=== PATIENT | male | born 2000 | race Caucasian/White ===

== ENCOUNTER 2023-07-07 11:48 | Emergency (ER) | payer OTHER, SELFPAY ==
[2023-07-07 11:53] VITALS: BP 131/82; PULSE 91; RESP 16; O2SAT 99; BMI 20.6
--- NOTE | 2023-07-07 11:57 | XR_ITS ---
WS: [id number] Left hand, 3 views, 07/07/2023 Clinical Data: hand injury Comparison: None. Findings: No fractures or dislocations are seen. The soft tissues are unremarkable. The joint spaces are normal There is minimal flexion of the left third finger PIP joint and there is a dressing surrounding the d istal left third finger. Impression: Negative for bone injury of the left hand.
[2023-07-07] MEDS: lidocaine 1% INJ 10 mL (per mL) 5 ML INTRADERMA (13:00)
--- NOTE | 2023-07-07 13:02 | ED_ITS ---
HPI - Wound/Laceration General: Chief Complaint: Wound/Laceration Stated Complaint: joe injury sent by Time Seen by Provider: 07/07/23 12:08 Source: patient Mode of arrival: ambulatory Limitations: no limitations History of Present Illness: Patient presents to the emergency department today for evaluation treatment of injury sustained to the distal left third finger while at work today. Patient states that a belt on a piece of equipment he was using had broken. He and another employee were trying to replace the belt and both had lifted and held a metal gear to replace the belt. Patient states that the other employee said he was going to let go but, because of all the noise in the shop, the patient did not hear him. When the other employee let go of the gear, the gear fell down and impacted his left finger which was underneath the metal gear. Patient states he started bleeding immediately and applied pressure using his shirt. He did go to the office regarding his injury and was directed here. He reports his tetanus is up-to-date 3 years ago. Review of Systems General: Reports: 10 or more systems reviewed and unremarkable except in HPI and below Physical Exam Const: COMMON NORMALS: no acute distress, patient oriented x3 and alert HENMT: COMMON NORMALS: normocephalic, atraumatic and hearing grossly normal bilaterally HEAD & SCALP: normocephalic and atraumatic Eye: COMMON NORMALS: Equal, round and reactive pupils present, EOMs intact bilaterally and conjunctivae normal CONJUNCTIVA: Yes conjunctivae normal PUPIL: Yes Equal, round and reactive pupils present Neck/C-Spine: COMMON NORMALS: full ROM and no JVD Lymph: LYMPHATIC: no lymphadenopathy noted Resp: COMMON NORMALS: normal respiratory effort, No retractions and No use of accessory muscles Cardio: COMMON NORMALS: no JVD and regular rate RATE: regular rate Extremity: NARRATIVE EXTREMITY EXAM: Patient has ability to flex the DIP joint of the left third finger but cannot extend it. Patient is neurovascularly intact to the distal end of the left third finger. Cap refill brisk and less than 2 seconds. Nail matrix and nailbed unaffected. Patient has a semicircular laceration over the posterior DIP joint without active bleeding at this time. Neuro: COMMON NORMALS: patient oriented x3 SENSORIUM/ORIENTATION: Yes alert Psych: COMMON NORMALS: mental status grossly normal, Normal thought process present, cooperative and normal affect THOUGHT PROCESS: Normal thought process present Skin: COMMON NORMALS: no rashes or lesions noted and turgor normal GENERAL SKIN EXAM: no rashes or lesions noted and turgor normal Procedures Laceration Laceration 1: Site: hand Side (If applicable): left (Posterior DIP joint of the third finger) Size (cm): 1.25 Description: flap Depth: involves tendon Local Anesthetic: lidocaine 1% Amount of anesthesia used (mL): 3 Pre-repair: wound explored and irrigated extensively (Saline and Betadine flushed using syringe) Skin layer closed with: nylon Size (cm): 4-0 Number of sutures: 5 Technique: simple, interrupted Course Vital Signs: Vital signs: Vital Signs Pulse Rate 91 07/07/23 11:53 Respiratory Rate 16 07/07/23 11:53 Blood Pressure 131/82 07/07/23 11:53 Pulse Oximetry 99 07/07/23 11:53 Oxygen Delivery Me thod Room Air 07/07/23 11:53 MDM - Wound/Laceration Medical Decision Making X-ray showed no signs of underlying bony abnormality but, did note flexion at rest of the DIP joint of the third finger. On examination, patient is not able to extend from the DIP joint though flexion is possible. No signs of injury to the nail. Patient's wound did show noted wound edge separation and patient received ring block for comfort to allow for vigorous irrigation using syringe flush of saline and Betadine to clean the wound. With cleaning, the flap was able to be lifted and it does appear the patient's extensor tendon has been lacerated. Wound was anchored with 4-0 nylon sutures performed by Kevin (PA student) and a call to orthopedic specialty was initiated. Dr Stone (land reclamation specialist) requested eval by Dr Hart or by hand ortho in [place]. Contacted Kameron Hart PAC who indicated follow up in their clinic, requested IM ancef in ER and d/c on oral abx. Michael was also given short course of [place] by Dr Mike. Discussed with patient and his mother the request for follow-up through orthopedics as well as continuing oral antibiotics. They were also given information regarding wound care and bandaging instructions. Both patient and mother verbalized understanding and agreement to treatment plan. Differential Diagnosis Likely laceration (Skin, tendon, nail avulsion, nail matrix injury); Unlikely ab scess, abrasion or avulsion of skin Discharge Plan Discharge Patient Disposition: Home Clinical Impression: Laceration of finger, left, with tendon Condition: Stable Prescriptions: New doxycycline hyclate 100 mg capsule 100 mg PO BID 10 Days Qty: 20 0RF Discharge Orders: Discharge ED (Routine); Ordered 07/07/23 Ordered By: Sofy Gustafson Discharge Diet: Usual diet Discharge Activity: Limit activity as instructed Patient Instructions: Finger Laceration (ED), Tendon Laceration (ED) Activity Restrictions/Additional Instructions: X-ray indicated no bony fracture however, examination while wound was being irrigated is concerning for laceration of your extensor tendon. I did reach out to the retail seasonal specialist here who wishes to see you for follow-up. Until then, we want you to take your oral antibiotics as prescribed. Wash your wound twice a day with warm water and a mild soap, keep it covered with clean bandaging, and wear your finger guard for extra protection. Coding Level of Care Code ED Nuclear Medical Technologist for Corky Ruiz
[2023-07-07] MEDS: ceFAZolin 1,000 MG in water for injection-sterile 2.5 ML 2.5 MG IM (14:21)
--- NOTE | 2023-07-08 11:57 | DCPLANNER ---
Addendum entered by Zenia Aldrich 07/22/23 10:49: Patient did attend this appointment with ortho Addendum entered by Zenia Aldrich 07/11/23 14:03: Patient has a follow up appointment scheduled for Wednesday, July 12, 2023 at 1:[address] Hart at ortho. Original Note: icu manager had message to schedule a follow up appointment for patient with ortho. icu manager sent patients information to the front office staff at ortho. Patients information will be printed and reviewed. Clinic will call patient with appointment information.
== END 2023-07-07 14:30 | disposition home or self-care (01) ==
PROVIDERS: Emergency Provider Physician Assistant
DX: S61.213A Laceration without foreign body of left middle finger without damage to nail, initial encounter (principal); S56.424A Laceration of extensor muscle, fascia and tendon of left middle finger at forearm level, initial encounter; W23.0XXA Caught, crushed, jammed, or pinched between moving objects, initial encounter
CPT/HCPCS: 12001; 73130; 96372; 99283; J0690

== ENCOUNTER 2023-07-13 08:27 | Day surgery (SDC) | payer OTHER, SELFPAY ==
[2023-07-12 16:14] VITALS: BMI 21.2
[2023-07-13] VITALS (8 sets, daily range): BP systolic 122–147; BP diastolic 77–91; PULSE 62–99; RESP 12–19; TEMP 36.4–36.6; O2SAT 94–99; BMI 21.2
[2023-07-13] MEDS: acetaminophen 1,000 MG/100 ML PIGGYBACK 400 MG IV (09:11)
[2023-07-13] MEDS: ketorolac 30 mg/mL INJ (09:21)
[2023-07-13] MEDS: ketorolac 30 mg/mL INJ IVP (09:22)
[2023-07-13] MEDS: sodium chloride 0.9% 1,000 ML 30 ML IV (09:24)
--- NOTE | 2023-07-13 09:56 | P.ANESASSM_ITS ---
Pre-Anesthetic Assessment Height/Weight: Height 1.65 m Weight 58.06 kg Temp Pulse Resp BP Pulse Ox O2 Del Method 97.6 F 62 18 137/88 94 Room Air 07/13/23 08:58 07/13/23 08:58 07/13/23 08:58 07/13/23 08:58 07/13/23 08:58 07/13/23 08:59 Preop Diagnosis: left middle finger laceration extensor tendon injury Operation Date: 07/13/23 10:25 Proposed Procedures p LEFT MIDDLE FINGER LACERATION EXPLORATION. IRRIGATION AND DEBRIDEMENT. WITH EXTENSOR TENDON REPAIR AND DISTAL INTERPHALANGEAL JOINT PINNING. 18283,S61 .219A(Left) - Mckay Mahaska, DO s Debridement Upper Extremity(Left) - Mckay Hailey, DO s Tendon Repair Finger Extensor Tendon Repair Finger(Left) - Mckay Mahaska, DO Familial anesthetic complications: none Was Beta Ashwini taken within 24 hours: N/A Was Clonidine taken within 24 hours: N/A Last intake: Intake Last Liquid Date 07/12/23 Last Liquid Time 21:00 Last Solid Date 07/12/23 Last Solid Time 21:00 Social Alcohol and Tobacco (chews) Exam alert, oriented x 3 and regular rate & rhythm Airway Submandibular: within normal limits Cervical ROM: within normal limits Mallampati: Class II Dentition: chipped Anesthetic Plan ASA status: 2 Anesthesia: Choice Medications/Allergies Home Medications Medication Instructions Recorded Confirmed Last Taken Type doxycycline hyclate 100 mg capsule 100 mg PO BID 10 days #20 caps 07/07/23 07/13/23 07/13/23 Rx Allergies Allergy/AdvReac Type Severity Reaction Status Date / Time Sulfa (Sulfonamide Allergy ALGY-Hives Verified 07/12/23 16:13 Antibiotics) Current Medications Generic Name Dose Route Start Last Admin Trade Name Freq PRN Reason Stop Dose Admin Sodium Chloride 1,000 mls @ 30 mls/hr 07/13/23 09:00 07/13/23 09:24 Sodium Chloride 0.9% IV 07/14/23 08:59 30 mls/hr .Q24H LAY Administration Data Anesthesia Cardiac Studies: No Data to Display
--- NOTE | 2023-07-13 10:09 | W.PM.OPSUD ---
Surgery/Procedure H&P Update DATE OF PROCEDURE: July 13, 2023 DATE H&P PERFORMED: 07/12/23 CHANGES TO PREVIOUS DOCUMENTATION: None. No change in HPI visit from 07/12/2023. Patient has left middle finger extensor tendon laceration at zone 1. Through shared decision-making he understands risk benefits complication alternatives with surgery and elects proceed with surgical intervention. All questions answered at this time. Patient elects proceed with surgery today. PREOP DIAGNOSIS: left middle finger laceration extensor tendon injury PRIMARY INDICATION FOR PROCEDURE: left Middle finger laceration extensor tendon injury PLANNED PROCEDURE: Operation Date: 07/13/23 10:25 Proposed Procedures p LEFT MIDDLE FINGER LACERATION EXPLORATION. IRRIGATION AND DEBRIDEMENT. WITH EXTENSOR TENDON REPAIR AND DISTAL INTERPHALANGEAL JOINT PINNING. 34262,S61.219A(Left) - DO westley Motley Debridement Upper Extremity(Left) - DO westley Motley Tendon Repair Finger Extensor Tendon Repair Finger(Left) - Mckay Hart DO
[2023-07-13] MEDS: ceFAZolin 2,000 MG in sodium chloride 0.9% (plus) 50 ML 100 MG IV (10:33)
[2023-07-13] MEDS: ROPivacaine 0.5% SDV 30 mL 150 MG INJECTION (11:04)
[2023-07-13] MEDS: lidocaine 2% INJ 20 mL INJECTION (11:04)
--- NOTE | 2023-07-13 11:14 | SUR.OPER ---
Family Notified Of Patient's Status Via Phone.
--- NOTE | 2023-07-13 12:35 | PM.OP2 ---
Brief Operative Note Date of procedure: 07/13/23 Pre-op diagnosis: Left middle finger laceration extensor tendon injury Post-op diagnosis: same Procedure Done: Left middle finger laceration exploration. wound size [id number] Irrigation and debridement of (skin, fat, tendon and bone.) Extensor tendon repair and distal interphalangeal joint pinning. Surgeon: Mckay Hart Estimated blood loss (mL): 5 Complications: none Post-op Plan: Orthopedic discharge instructions: Keep splint and dressing on, dry and intact. Leave Dressing on and in place until follow up with Hand therapist in the about 3 days. Follow up with Hand OT Specialist for therapy and fitting of new splint. No baths or soaks No weightbearing on the extremity until cleared. Limited range of motion in finger Ice and elevate as needed for pain and swelling Finish taking your previously prescribed antibiotic. Take pain medication as prescribed Take antinausea medication as needed Follow-up with Dr. Hart in the office in 2 weeks Contact the office for any questions or concerns Condition: stable Disposition: PACU Coding Level of Care Code Acute Code for Chg Joseph
[2023-07-13] MEDS: meperidine 50 mg/mL INJ 12.5 MG IVP (12:39)
--- NOTE | 2023-07-13 12:40 | P.PCN_ITS ---
PACU note Narrative: Patient is a 22-year-old male who just underwent a left middle finger laceration extensor tendon repair, irrigation and debridement of wound and distal interphalangeal joint pinning. patient transferred to PACU in stable condition. Patient is somnolent but is arousable. pain is well controlled. Dressing and splint on hand is dry and in place. Patient's fingers are warm and well- perfused. Limited range of motion exam in fingers due to pinning and splint placement. normal cap refill under 2 seconds. Patient has normal elbow range of motion. Unable to assess sensation due to residual localized anesthetic. Exam: somnolent, arousable Disposition: discharged
--- NOTE | 2023-07-13 13:32 | P.OP_ITS ---
Operative Report Date of procedure: July 13, 2023 Pre-op diagnosis: Preop Diagnosis left middle finger laceration extensor tendon injury Post-op diagnosis: Same with traumatic arthrotomy left middle finger DIP joint Procedure done: Left middle finger laceration exploration Left middle finger irrigation debridement (wound size 2cmx0.1tre1ew? Irrigation and debridement of (skin, fat, tendon and bone.)) Left middle finger zone 1 extensor tendon repair Left middle finger distal interphalangeal joint percutaneous pinning Implants: 0.045 K wire x1 Arthrex 2.5 mm Cece swivel lock Surgeon: Mckay Hart DO/orthopedic forest patrolman: Kameron Hart?JUAN LUIS gerard was necessary for execution of his case for assistance with finger positioning as well as holding reduction for percutaneous pinning as well as assistance with retraction and protection of neurovascular structures and assistance in wound closure Anesthesia: MAC Estimated blood loss (mL): 1 Finger turnicot was used 73 minutes IV fluids: 700 mL Complications: None Findings: See operative report narrative Condition: stable Disposition: same day Brief History: Patient presents to the office after sustaining a traumatic laceration working at the [facility] [employer] through the left middle finger and has no active extension of his DIP joint with findings consistent with laceration left middle finger in zone 1 extensor tendon injury. We talked about treatment options given his young age would recommend surgical exploration with irrigation and debridement extensor tendon repair and pinning of the distal interphalangeal joint. We talked about the risk benefits complication alternatives with surgery through shared decisio n-making patient elects proceed with surgical intervention all questions answered at this time. Consent was obtained. Procedure: Patient seen evaluated in the preoperative holding area. Consent was reviewed and signed with patient. Correct extremity was then marked. Patient seen evaluated by anesthesia once cleared for surgery was brought back to the operative suite kept on the [facility] and an armboard was applied to the left upper extremity. He underwent anesthesia per the anesthesia department once appropriately anesthetized the left upper extremity was then prepped and draped in sterile orthopedic fashion. Final timeout performed. Patient received appropriate preoperative antibiotics. Finger turnicot was applied to the left middle finger I then utilized suture scissors to remove patient's previous laceration stitch repair for exploration. I made small extensions of the laceration which was in more of a U-shaped fashion over the DIP joint of the left middle finger. The extension allow me for mobilization. I then performed an extensive irrigation debridement of the wound bed which consisted of skin and subcutaneous tissue tendon and bone as there was a small dorsal piece of bone that was avulsed with no periosteal attachments and this was subsequently removed there is no complete fracture noted on the middle phalanx. The total wound size was 2 cm x 0.5 cm x 1 cm. I then thoroughly irrigated the wound bed and then underwent exploration evaluation of the extensor tendon injury. Extensor tendon injury was noted and was completely avulsed off of the distal attachment at the distal phalanx showing complete avulsion/laceration with no significant stump of tissue left particularly on the ulnar 90% of the tendon. There was a small attenuated terminal extensor with dorsal capsule on the radial half roughly 10% was left. I tried to reapproximate with just an end-to-end repair but given the minimal tissue distally the repair continued to tear through. At this point in time I elected to proceed with pinning of the distal interphalangeal joint to hold the finger and full extension to gas turbine powerplant mechanic helper in my repair and reapproximation. I then loaded a 0.45 K wire started this distally and in retrograde fashion pin the DIP joint in full extension. This was confirmed with mini C arm and was in satisfactory position now that I had stability I then made the determination this would require stitching of the retracted tendon as well as incorporation with a small attenuated with the 10%. I then utilized a 4-0 FiberWire suture and created for total strands utilizing a running stitch to obtain full control as well as to allow for excursion of the tendon I incorporated the retracted ulnar portion as well as utilized the 10% on the radial half that appeared to have some distal attachment intact. I then subsequently utilized a [place] and dissection scissors to dissect proximally to mobilize the tendon to its maximal ability I had Arthrex his Cece anchor planned it appeared that the Cece anchor might have a little too much length and as a result I utilized this as a Bio-Tenodesis type of screw fixation and subsequently I placed my guidepin at the distal insertion I had the cheat this slightly radially as this is where I would have the most ability to get the tendon excursion in this area as well as to miss the percutaneous K wire I then located the distal insertion point utilized my guidepin this was placed dorsal to palmar fashion I then overdrilled the cortex to accommodate for the Cece swivel lock. I then loaded all my sutures in a Juan needle and then passed this percutaneously on the palmar aspect of the finger. These were held under appropriate tension and clamped up against the skin to maintain this tension and was held by my physician assistant certified to maintain the tension and approximate the distal insertion over the DIP joint adjacent to its anatomical insertion site. While this was held in place I took the Cece swivel lock anchor and advanced this in tenodesis fashion which had excellent fixation and no evidence of tendon retraction. Excess suture was cut flush with the skin and was satisfied with stable fixation of the Cece swivel lock anchor. X-rays with mini C arm were taken show weaning stable Cece swivel lock position with no prominence dorsally or volarly as well as stable K wire fixation in full extension of the DIP joint and no davy-implant fracture was noted. I then thoroughly irrigated the wound bed. I then subsequently bent cut and capped the K wire. I utilized 5-0 Prolene suture to reapproximate the soft tissues particularly the capsule and attached this to the tendinous insertion to close some of the soft tissue over the bone once this was performed I then reapproximated the skin with simple interrupted nylon suture. Turnicot was removed hemostasis was satisfactory dressings were then applied with Xeroform 4 x 4's fluffs Katia wrap and Kerlix as well as a volar splint was applied with Jett wrap. Patient was then awakened from anesthesia and taken the PACU in stable condition. Disposition: Patient taken back in stable condition recovering well pain controlled. Receive appropriate discharge structure as well as pain medication postoperatively. We will get patient seen by our OT hand therapy within the next week for dressing takedown and plan for a custom tip protector and keeping DIP straight with allowance of PIP range of motion. Patient understands agrees with current plan. Questions answered. We will see him back in 2 weeks.
--- NOTE | 2023-07-13 15:05 | ANE.PACU2 ---
Inpatient post-anesthesia follow up: Airway intact: Yes Vital signs: Temperature 97.8 F Pulse Rate 72 Respiratory Rate 16 Blood Pressure 139/80 Pulse Oximetry 99 Oxygen Delivery Me thod Room Air Oxygen Flow Rate Fraction of Inspir ed Oxygen Hydration adequate: Yes Nausea and vomiting: No Pain level: 1 Mental status: Baseline
== END 2023-07-13 13:35 | disposition home or self-care (01) ==
PROVIDERS: Visit Provider Student in an Organized Health Care Education/Training Program
PROC: (CPT 11044; principal; 2023-07-13 10:15)
PROC: (CPT 11044; 2023-07-13 10:15)
PROC: (CPT 11044; 2023-07-13 10:15)
DX: S66.323A Laceration of extensor muscle, fascia and tendon of left middle finger at wrist and hand level, initial encounter (principal); W23.0XXA Caught, crushed, jammed, or pinched between moving objects, initial encounter; Y99.0 Civilian activity done for income or pay
CPT/HCPCS: 11044; 26418; 26727; C1713; J0131; J0690; J1100; J1885; J2175; J2250; J2405; J2704; J2795; J3010; J7030

== ENCOUNTER 2023-08-02 06:00 | Outpatient (CLI) | payer OTHER, SELFPAY | END 2023-08-02 06:01 | disposition home or self-care (01) | LOC: SOT 08-03 10:45 | PROVIDERS: Visit Provider Student in an Organized Health Care Education/Training Program | DX: Z46.89 Encounter for fitting and adjustment of other specified devices (principal); S61.219D Laceration without foreign body of unspecified finger without damage to nail, subsequent encounter; X58.XXXD Exposure to other specified factors, subsequent encounter | CPT/HCPCS: 97760; L3925 ==

== ENCOUNTER → 2023-08-02 09:58 | Outpatient (BNVA) | payer OTHER, SELFPAY | PROVIDERS: Visit Provider Student in an Organized Health Care Education/Training Program | DX: S61.213A Laceration without foreign body of left middle finger without damage to nail, initial encounter; X58.XXXA Exposure to other specified factors, initial encounter | CPT/HCPCS: 73130 ==

== ENCOUNTER → 2023-08-18 13:37 | Outpatient (BNVA) | payer OTHER, SELFPAY | PROVIDERS: Visit Provider Student in an Organized Health Care Education/Training Program | DX: S61.213D Laceration without foreign body of left middle finger without damage to nail, subsequent encounter; X58.XXXD Exposure to other specified factors, subsequent encounter | CPT/HCPCS: 73130 ==

== ENCOUNTER 2024-08-18 16:07 | Emergency (ER) | payer SELFPAY ==
[2024-08-18 16:09] VITALS: BP 135/98; PULSE 76; RESP 19; TEMP 36.8; O2SAT 99
--- NOTE | 2024-08-18 16:13 | ECG_ITS ---
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 Measurements Intervals [place] Rate: 71 P: 50 MI: 148 QRS: 76 QRSD: 100 T: 62 QT: 357 QTc: 390 Interpretive Statements SINUS RHYTHM Compared to ECG 07/23/2018 02:08:38 Early repolarization no longer present Electronically Signed On 08-20-2024 18:50:59 CDT by Severiano Bruce M.D. [id number]
--- NOTE | 2024-08-18 16:18 | ED_ITS ---
HPI - Chest Pain 2 General: Chief Complaint: Chest Pain Stated Complaint: n/v; chest pain Time Seen by Provider: 08/18/24 16:09 History of Present Illness: 23-year-old male patient comes in today with complaints of chest discomfort to the left side of his chest. Patient has also had some neck pain and some numbness in his left arm. Patient is very talkative. Patient appears nontoxic. Patient appears in no pain. Patient does endorse some recent increase in gastric distress with heartburn. Patient has also been having some neck discomfort with exacerbated pain with movement. Patient also endorses some added stress due to some problems with a neighbor and a friend in [place]. Patient denies any chronic medical problems. Patient reports no routine medications prescription or [id number]. Patient does chew tobacco and drink alcohol occasionally. Patient denies any methamphetamines or THC use. Patient does have very poor dentition. Related Data Previous Rx's Medication Instructions Recorded tramadol 50 mg tablet 50 mg PO Q6H PRN pain #20 tabs 07/13/23 Distal Finger Custom Splint #1 ea 08/02/23 cyclobenzaprine 5 mg tablet 5 mg PO DAILY PRN muscle spasm #10 08/18/24 tabs pantoprazole 20 mg tablet,delayed 20 mg PO DAILY #14 tabs 08/18/24 release Allergies Allergy/AdvReac Type Severity Reaction Status Date / Time Sulfa (Sulfonamide Allergy ALGY-Hives Verified 08/18/24 16:18 Antibiotics) Review of Systems 2 General: Reports: 10 or more systems reviewed and unremarkable except in HPI and below Physical Exam 2 Const: COMMON NORMALS: alert HENMT: COMMON NORMALS: normocephalic HEAD & SCALP: normocephalic MOUTH: Normal oral and palatal mucosa present TEETH & GINGIVA: Yes poor dentition Neck/C-Spine: COMMON NORMALS: full ROM CERVICAL SPINE: No Cervical spine tenderness and Yes Paracervical muscle tenderness Resp: COMMON NORMALS: normal respiratory effort Cardio: COMMON NORMALS: regular rate and regular rhythm RATE: regular rate RHYTHM: regular rhythm GI: COMMON NORMALS: Soft to palpation and non-tender PALPATION: Yes Soft to palpation Back/Pelvis: COMMON NORMALS: thoracic and lumbar spine normal to inspection Extremity: COMMON NORMALS: full ROM Neuro: SENSORIUM/ORIENTATION: Yes alert Skin: COMMON NORMALS: turgor normal GENERAL SKIN EXAM: turgor normal Course 2 Vital Signs: Vital signs: Vital Signs Temperature 98.2 F 08/18/24 16:09 Pulse Rate 76 08/18/24 16:09 Respiratory Rate 19 H 08/18/24 16:09 Blood Pressure 135/98 08/18/24 16:09 Pulse Oximetry 99 08/18/24 16:09 Oxygen Delivery Me thod Room Air 08/18/24 16:09 MDM - Chest Pain Medical Decision Making 23-year-old male patient comes in to be evaluated for some intermittent chest pain along with some left neck discomfort and left arm paresthesia. On exam patient has some paraspinous cervical neck tenderness on the left side. Patient has normal range of motion of the neck. Patient has very poor dentition with multiple caries to the mouth. Oral mucosa is normal. Abdomen is soft with some mild epigastric tenderness. Chest wall is nontender. Heart rates regular. Blood pressure is normal. Differential diagnosis includes GERD, hiatal hernia, cervical radiculopathy, anxiety, pericarditis, endocarditis, muscle strain. Initial EKG shows a sinus rhythm with no abnormalities. CBC and CMP were normal. Troponin shows no elevation. Believe patient most likely has some gastric distress causing reflux and some muscle spasm of the neck. This most likely is caused patient's symptoms. Recommended patient follow-up with primary care in 1 week. Patient was placed on Protonix and some cyclobenzaprine. Patient stated understanding agreed with plan. Lab Data 08/18/24 16:50 08/18/24 16:50 Laboratory Results WBC 6.10 10^3/uL (3.29-11.43) 08/18/24 16:50 RBC 5.14 10^6/uL (3.85-5.65) 08/18/24 16:50 Hgb 15.30 g/dL (11.27-16.99) 08/18/24 16:50 Hct 44.6 % (37-53) 08/18/24 16:50 MCV 86.8 fl (82-101) 08/18/24 16:50 MCH 29.8 pg (27-33) 08/18/24 16:50 MCHC 34.3 g/dL (30-55) 08/18/24 16:50 RDW 12.1 % (12.1-15.1) 08/18/24 16:50 Plt Count 296 10^3/cmm (157-399) 08/18/24 16:50 MPV 10.1 fL (7.4-10.4) 08/18/24 16:50 Neut % (Auto) 58.9 % 08/18/24 16:50 Lymph % (Auto) 30.3 % 08/18/24 16:50 [place] % (Auto) 5.7 % 08/18/24 16:50 Eos % (Auto) 3.9 % 08/18/24 16:50 Baso % (Auto) 1.0 % 08/18/24 16:50 Neut # (Auto) 3.59 10^3/uL (1.8-7.7) 08/18/24 16:50 Lymph # (Auto) 1.9 10^3/uL (0.8-4.8) 08/18/24 16:50 [place] # (Auto) 0.4 10^3/uL (0.2-0.9) 08/18/24 16:50 Eos # (Auto) 0.2 10^3/uL (0.0-0.8) 08/18/24 16:50 Baso # (Auto) 0.1 10^3/uL (0.0-0.1) 08/18/24 16:50 Nucleated RBC % (auto) 0 % 08/18/24 16:50 Nucleated RBCs # 0.0 /100WBC 08/18/24 16:50 Sodium 139 mmol/L (136-145) 08/18/24 16:50 Potassium 3.6 mmol/L (3.5-5.1) 08/18/24 16:50 Chloride 101 mmol/L (98-107) 08/18/24 16:50 Carbon Dioxide 28 mmol/L (22-29) 08/18/24 16:50 Anion Gap 13.6 (5-19) 08/18/24 16:50 BUN 6 mg/dL (6-20) 08/18/24 16:50 Creatinine 0.8 mg/dL (0.7-1.2) 08/18/24 16:50 GFR Calculation 118.8 mL/min (90-130) 08/18/24 16:50 Glucose 100 mg/dL (65-115) 08/18/24 16:50 Calculated Osmolality 286 mOsm/kg (285-295) 08/18/24 16:50 Calcium 9.3 mg/dL (8.5-10.5) 08/18/24 16:50 Total Bilirubin 0.5 mg/dL (0.15-1.2) 08/18/24 16:50 AST 13 U/L (0-40) 08/18/24 16:50 ALT 11 U/L (0-41) 08/18/24 16:50 Alkaline Phosphatase 66 U/L (40-130) 08/18/24 16:50 Troponin T Baseline 7 ng/L (0-15) 08/18/24 16:50 Total Protein 7.0 g/dL (6.6-8.7) 08/18/24 16:50 Albumin 4.8 g/dL (3.5-5.2) 08/18/24 16:50 Globulin 2.2 g/dL (1.3-4.6) 08/18/24 16:50 Lipase 20 U/L (13-60) 08/18/24 16:50 Urine Color Yellow (Yellow) 08/18/24 16:29 Urine Appearance Clear (CLEAR) 08/18/24 16:29 Urine pH 7.5 (5-7) 08/18/24 16:29 Ur Specific [place] 1.003 (1.005-1.030) L 08/18/24 16:29 Urine Protein Negative (Negative) 08/18/24 16:29 Urine Glucose (UA) Negative (Normal) 08/18/24 16:29 Urine Ketones Negative (Negative) 08/18/24 16:29 Urine Blood Negative (Negative) 08/18/24 16:29 Urine Nitrate Negative (Negative) 08/18/24 16:29 Urine Bilirubin Negative (Negative) 08/18/24 16:29 Urine Urobilinogen 0.2 mg/dL (Negative) 08/18/24 16:29 Ur Leukocyte Esterase Negative (Negative) 08/18/24 16:29 Urine RBC 0-2 /hpf (0-2) 08/18/24 16:29 Urine WBC 0-5 /hpf (0-5) 08/18/24 16:29 Ur Squamous Epith Cells 0-5 /hpf (0-5) 08/18/24 16:29 Amorphous Sediment Not Reportable 08/18/24 16:29 Urine Bacteria None seen /hpf (NONE) 08/18/24 16:29 Hyaline Casts 0-4 /lpf H 08/18/24 16:29 No radiology studies performed this visit EKG Data EKG 1: I personally reviewed and interpreted this EKG as follows: EKG interpretation date: 08/18/24 EKG interpretation time: 16:22 Prior EKG tracings: not available for review Interpretation: EKG shows a sinus rhythm with a regular rate at [address] elevation or ectopy is noted. No prior exam was available for comparison. Computer generated interpretation: Sinus rhythm. Normal EKG. Unconfirmed report. Discharge Plan Discharge Patient Disposition: Home Clinical Impression: Chest pain due to GERD Cervical muscle strain Qualifiers: Encounter type: initial encounter Qualified Code(s): S16.1XXA - Strain of muscle, fascia and tendon at neck level, initial encounter Condition: Stable Prescriptions: New pantoprazole 20 mg tablet,delayed release (DR/EC) 20 mg PO DAILY Qty: 14 0RF cyclobenzaprine 5 mg tablet 5 mg PO DAILY PRN (Reason: muscle spasm) Qty: 10 0RF No Action (DME) Distal Finger Custom Splint See Rx Instructions .Route .MEDSUPPLY Qty: 1 0RF Rx Instructions: Allow PIP joint ROM tramadol 50 mg tablet 50 mg PO Q6H PRN (Reason: pain) Qty: 20 0RF Discharge Orders: Discharge ED (Routine); Ordered 08/18/24 Ordered By: Nito Wilson Discharge Diet: Usual diet Discharge Activity: Increase activity as tolerated Patient Instructions: Chest Pain - Noncardiac Activity Restrictions/Additional Instructions: Activity as tolerated. Take pantoprazole for gastric reflux. Most likely this is what is causing your chest pain. The numbness and of the arm is most likely due to a muscle spasm in the neck. Take cyclobenzaprine to help with muscle spasm take 1 tablet daily at bedtime for the next 10 days. Follow-up with primary care in 1 week for recheck. Return to ED for new concerns such as severe shortness of breath, worsening chest pain, or fever. 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
[2024-08-18 16:37] LABS: Bilirubin Urine Negative (Negative); Blood Urine Negative (Negative); Glucose Urine UA Negative (Normal); Ketones Urine Negative (Negative); Leukocyte Esterase Urine Negative (Negative); Nitrate Urine Negative (Negative); Protein Urine Negative (Negative); Specific Gravity, Urine 1.003 (1.005-1.030); Urine Appearance Clear (CLEAR); Urine Color Yellow (Yellow); Urobilinogen Urine 0.2 mg/dL (Negative); pH Urine 7.5 (5-7)
[2024-08-18 16:40] LABS: Add Urine Microscopic? YES; Bacteria Urine None Seen /hpf; Hyaline Casts Urine 0-4 /lpf; RBC Urine 0-2 /hpf (0-2); Squamous Epithelial Cell Urine 0-5 /hpf (0-5); WBC Urine 0-5 /hpf (0-5)
[2024-08-18 16:55] LABS: UA Slide Review UA Slide Review Perf
[2024-08-18 16:55] LABS: Basophils # 0.1 10^3/uL (0.0-0.1); Eosinophils # 0.2 10^3/uL (0.0-0.8); Eosinophils % 3.9 %; Hematocrit 44.6 % (37-53); Lymphocytes # 1.9 10^3/uL (0.8-4.8); Lymphocytes % 30.3 %; Mean Corpuscular HGB Conc 34.3 g/dL (30-55); Mean Corpuscular Hemoglobin 29.8 pg (27-33); Mean Corpuscular Volume 86.8 fl (82-101); Mean Platelet Volume 10.1 fL (7.4-10.4); Monocytes # 0.4 10^3/uL (0.2-0.9); Monocytes % 5.7 %; Neutrophils # 3.59 10^3/uL (1.8-7.7); Neutrophils % 58.9 %; Nucleated Red Blood Cells % 0 %; Platelet Count 296 10^3/cmm (157-399); Red Blood Count 5.14 10^6/uL (3.85-5.65); Red Cell Distribution Width 12.1 % (12.1-15.1)
[2024-08-18 17:13] LABS: Troponin(5th) Baseline 7 ng/L (0-15)
[2024-08-18 17:18] LABS: Alanine Aminotransferase 11 U/L (0-41); Albumin Level 4.8 g/dL (3.5-5.2); Alkaline Phosphatase 66 U/L (40-130); Anion Gap 13.6 (5-19); Aspartate Amino Transferase 13 U/L (0-40); Blood Urea Nitrogen 6 mg/dL (6-20); Calcium 9.3 mg/dL (8.5-10.5); Carbon Dioxide 28 mmol/L (22-29); Chloride 101 mmol/L (98-107); Creatinine Clr Calc Pharmacy 121.8137; Globulin 2.2 g/dL (1.3-4.6); Glomerular Filtration Rate 118.8 mL/min (90-130); Glucose 100 mg/dL (65-115); Lipase 20 U/L (13-60); Osmolality Calculated 286 mOsm/kg (285-295); Potassium 3.6 mmol/L (3.5-5.1); Sodium 139 mmol/L (136-145); Total Bilirubin 0.5 mg/dL (0.15-1.2)
--- NOTE | 2024-08-18 17:39 | PC.NURSE ---
this nurse contacted family @[phone], family states they will pick pt up. pt states he does not have money for ride or phone to contact anyone.
[2024-08-18 17:41] VITALS: BP 114/92; PULSE 86; O2SAT 97
[2024-08-18] MEDS: pantoprazole 40 mg SDV IVP (17:41)
[2024-08-18 18:00] VITALS: BP 114/82; PULSE 86; O2SAT 98
== END 2024-08-18 18:02 | disposition home or self-care (01) ==
PROVIDERS: Emergency Provider Nurse Practitioner Family
DX: K21.9 Gastro-esophageal reflux disease without esophagitis (principal); S16.1XXA Strain of muscle, fascia and tendon at neck level, initial encounter; F17.220 Nicotine dependence, chewing tobacco, uncomplicated; X58.XXXA Exposure to other specified factors, initial encounter
CPT/HCPCS: 36415; 80053; 81001; 83690; 84484; 85025; 93005; 96374; 99284; J2470